=== PATIENT | female | born 1990 | race Caucasian/White ===

== ENCOUNTER 2024-01-14 12:14 | Emergency (ER) | payer MEDICAID ==
[~2024-01-14] VITALS: Ht 170.2 cm; Wt 127.3 kg
[~2024-01-14 12:14] MED LIST: BACTRIM DS 8001 TAB PO; DOXYCYCLINE 10100 MG PO
[2024-01-14] MEDS ORDERED: Ondansetron 4 MG/2 ML VIAL IV PRN (13:00)
[2024-01-14] MEDS ORDERED: Morphine 4 MG/ML VIAL IV PRN (13:00)
[2024-01-14] MEDS ORDERED: NS 1,000 ML IV ONE (13:00)
[2024-01-14] MEDS ORDERED: Acetaminophen 500 MG TAB PO ONE (13:00)
[2024-01-14 13:10] LABS: BASO % 0.3 % (0.0-2.0); EOS # 0.1 K/mm3 (0.0-0.7); EOS % 0.8 % (0.0-4.0); GRAN # 5.6 K/mm3 (1.4-6.5); GRAN % 88.5 % (42.2-75.2); HEMATOCRIT 44.6 % (37.0-47.0); HEMOGLOBIN 14.8 g/dl (12.5-16.0); LYMPH # 0.4 K/mm3 (1.2-3.4); LYMPH % 6.8 % (20.0-51.0); MEAN CELL VOLUME 82 fl (80.0-100.0); MEAN CORPUSCULAR HEMOGLOBIN 27 pg (27-31); MEAN CORPUSCULAR HGB CONC 33 g/dl (33.0-37.0); MEAN PLATELET VOLUME 9.7 fl (7.4-10.4); MONO # 0.2 K/mm3 (0.1-0.6); MONO % 3.3 % (1.7-9.3); PLATELET COUNT 238 K/mm3 (130-400); RED BLOOD COUNT 5.42 M/mm3 (4.10-5.30); REDCELL DISTRIBUTION WIDTH-CV 13.2 % (11.5-14.5)
[2024-01-14] MEDS ORDERED: Loperamide 2 MG CAP PO ONE (13:15)
[2024-01-14 13:26] LABS: ALBUMIN 3.7 gm/dL (3.5-5.0); CALCIUM 9.5 mg/dL (8.4-10.2); CREATININE, serum 0.85 mg/dL (0.57-1.11); POTASSIUM 4.1 mmol/L (3.5-4.5); TOTAL PROTEIN 7.2 gm/dL (6.2-8.1)
[2024-01-14 13:45] LABS: BILIRUBIN,TOTAL 0.4 mg/dL (0.2-1.2)
[2024-01-14 14:25] LABS: PH 7.5 (5.0-8.5); URINE APPEARANCE CLOUDY (CLEAR/HAZY); URINE BLOOD NEGATIVE (NEGATIVE); URINE COLOR YELLOW (YELLOW); URINE GLUCOSE 3+ (NEGATIVE); URINE KETONE TRACE (NEGATIVE); URINE NITRATE NEGATIVE (NEGATIVE); URINE PROTEIN(semi-quant) NEGATIVE (NEGATIVE); URINE UROBILINOGEN 0.2 E.U/dL (0.2-1.0)
[2024-01-14] MEDS ORDERED: NS 100 ML IV SCH (14:52)
[2024-01-14] MEDS ORDERED: Iohexol 300 - 100 ML VIAL IV ONE (14:52)
[2024-01-14] MEDS ORDERED: PERCOCET 325 MG1 TA2 PO (15:40)
[2024-01-14] MEDS ORDERED: ZOFRAN ODT4 MG PO (15:40)
[2024-01-14 16:03] VITALS: BP 132/77; PULSE 108; TEMP 99.7
[2024-01-14 16:15] LABS: COLLECTION METHOD CLEAN CATCH
== END 2024-01-14 16:03 | disposition home or self-care (01) ==
LOC: COL.ER 12:14
PROVIDERS: Personal Emergency Response Attendant
DX: R10.9 Unspecified abdominal pain (principal); R19.7 Diarrhea, unspecified; R11.0 Nausea; Z87.442 Personal history of urinary calculi
CPT/HCPCS: J2270; J2405; J7030; Q9967